=== PATIENT | male | born 1985 | race Caucasian/White ===

== ENCOUNTER 2017-01-05 13:58 | Emergency (ER) | payer OTHER | END 2017-01-05 15:03 | disposition home or self-care (01) | LOC: ER 13:58 | DX: J01.00 Acute maxillary sinusitis, unspecified (principal); J01.01 Acute recurrent maxillary sinusitis; R51 Headache; F17.200 Nicotine dependence, unspecified, uncomplicated; Z88.1 Allergy status to other antibiotic agents | CPT/HCPCS: 96372; 99282-25 ==

== ENCOUNTER 2017-02-25 20:57 | Emergency (ER) | payer OTHER ==
[2017-02-25 21:18] LABS: BASO % 0.2 % (0.2-1.2); EOS # 0.2 10_X3_uL (0.0-0.5); EOS % 1.8 % (0.8-7.0); GRAN # 7.8 10_X3_uL (1.8-5.4); GRAN % 66.7 % (34.0-67.9); HEMOGLOBIN 17.2 g/dL (13.7-17.5); LYMPH # 2.8 10_X3_uL (1.3-3.6); MEAN CORPUSCULAR HGB CONC 35.1 g/dL (32.0-36.0); MEAN CORPUSCULAR VOLUME 88.4 fL (79-92); MEAN PLATELET VOLUME 10.7 fl (7.5-11.5); MONO # 0.9 10_X3_uL (0.3-0.8); MONO % 7.3 % (5.3-12.2); PLATELET COUNT 189 x10_3/uL (163-337); RED BLOOD COUNT 5.54 x10_6/uL (4.6-6.1); RED CELL DISTRIBUTION WIDTH 13.3 % (11.6-14.4); WHITE BLOOD COUNT 11.7 x10_3/uL (4.2-9.1)
[2017-02-25 21:35] LABS: BLOOD UREA NITROGEN 16 mg/dL (7-18); CALCIUM 8.5 mg/dL (8.7-10.7); CARBON DIOXIDE 26 mmol/L (21-32); GLUCOSE,RANDOM 104 mg/dL (70-99); POTASSIUM 3.4 mmol/L (3.5-5.1); SODIUM 142 mmol/L (136-145)
== END 2017-02-25 22:13 | disposition home or self-care (01) ==
LOC: ER 20:57
PROVIDERS: General Practice
DX: R07.9 Chest pain, unspecified (principal); I49.9 Cardiac arrhythmia, unspecified; F17.210 Nicotine dependence, cigarettes, uncomplicated; Z88.1 Allergy status to other antibiotic agents
CPT/HCPCS: 36415; 71010; 80048; 85025; 85379; 93005; 99070; 99285-25